=== PATIENT | female | born 1945 | race Caucasian/White ===

== ENCOUNTER → 2023-05-11 09:40 | Outpatient (REF) | payer MEDICARE, SELFPAY | LOC: RAD 09:40 | PROVIDERS: ATTENDING PHYSICIAN Family Medicine | DX: J18.9 Pneumonia, unspecified organism (principal) | CPT/HCPCS: 71046 ==

== ENCOUNTER → 2023-08-11 14:02 | Outpatient (REF) | payer MEDICARE, SELFPAY | LOC: WDC 14:02 | PROVIDERS: ATTENDING PHYSICIAN Family Medicine | DX: Z12.31 Encounter for screening mammogram for malignant neoplasm of breast (principal) | CPT/HCPCS: 77063; 77067 ==

== ENCOUNTER → 2023-09-04 10:52 | Outpatient (REF) | payer MEDICARE, SELFPAY | LOC: HWRAD 10:52 | PROVIDERS: ATTENDING PHYSICIAN Family Medicine | DX: Z86.79 Personal history of other diseases of the circulatory system (principal); I25.10 Atherosclerotic heart disease of native coronary artery without angina pectoris | CPT/HCPCS: 93880 ==

== ENCOUNTER → 2023-09-16 07:56 | Outpatient (REF) | payer MEDICARE, SELFPAY ==
[2023-09-16 09:58] LABS: Blood Urea Nitrogen 24 mg/dl (7-17); Calcium 9.5 mg/dl (8.4-10.2); Carbon Dioxide 25 mmol/L (22-30); Chloride 109 mmol/L (98-107); Glucose 92 mg/dl (70-99); Sodium 138 mmol/L (135-145); eGFR > 60.00
[2023-09-16 10:25] LABS: Potassium 4.5 mmol/L (3.5-5.1)
== END ==
LOC: REG 07:56
PROVIDERS: ATTENDING PHYSICIAN Family Medicine
DX: Z01.818 Encounter for other preprocedural examination (principal)
CPT/HCPCS: 36415; 80048

== ENCOUNTER → 2023-09-24 07:23 | Outpatient (REF) | payer MEDICARE, SELFPAY | LOC: RAD 07:23 | PROVIDERS: ATTENDING PHYSICIAN Family Medicine | DX: I65.21 Occlusion and stenosis of right carotid artery (principal) | CPT/HCPCS: 70496; 70498; Q9967 ==

== ENCOUNTER → 2023-11-27 09:00 | Outpatient (REF) | payer MEDICARE, SELFPAY | LOC: RAD 09:00 | PROVIDERS: ATTENDING PHYSICIAN Family Medicine | DX: M25.561 Pain in right knee (principal); Z91.81 History of falling | CPT/HCPCS: 73502; 73564 ==

== ENCOUNTER → 2023-12-19 07:40 | Outpatient (REF) | payer MEDICARE, SELFPAY ==
[2023-12-19 08:15] LABS: % Basophils 0.2 % (0-2); % Eosinophils 4.8 % (0-6); % Immature Granulocytes 0.2 % (0-0.5); % Lymphocytes 20.6 % (20.5-51.1); % Monocytes 7.2 % (1.7-9.3); Absolute Eosinophils 0.2 10^3/uL (0-0.7); Absolute Lymphocytes 0.9 10^3/uL (1.2-3.4); Absolute Monocytes 0.3 10^3/uL (0.1-0.6); Absolute Neutrophils 3.1 10^3/uL (1.4-6.5); Hematocrit 39.2 % (37.0-47.0); Hemoglobin 13.1 g/dL (12.0-16.0); Mean Corp Hgb Conc. 33.4 g/dL (33.0-37.0); Mean Corpuscular Hgb 30.8 pg (27.0-31.0); Mean Corpuscular Volume 92.2 fL (81.0-99.0); Nucleated Red Blood Cells % 0 %; Platelet Count 172 10^3/uL (130-400); Red Blood Cell Count 4.25 10^6/uL (4.20-5.40); Red Cell Dist. Width 12.9 % (11.5-14.5); White Blood Cell Count 4.6 10^3/uL (4.8-10.8)
[2023-12-19 08:37] LABS: Iron 100 ug/dl (37-170)
[2023-12-19 08:46] LABS: Percent Saturation 31 % (20-50); Total Iron Binding Capacity 319 ug/dl (265-497)
[2023-12-19 09:50] LABS: Folate 13.7 ng/ml (2.76-20); Vitamin B12 331 pg/ml (239-931)
== END ==
LOC: REG 07:40
PROVIDERS: ATTENDING PHYSICIAN Family Medicine
DX: I10 Essential (primary) hypertension (principal); E78.00 Pure hypercholesterolemia, unspecified; G70.00 Myasthenia gravis without (acute) exacerbation; E53.8 Deficiency of other specified B group vitamins; D64.9 Anemia, unspecified; D51.9 Vitamin B12 deficiency anemia, unspecified
CPT/HCPCS: 36415; 82607; 82728; 82746; 83540; 83550; 85025

== ENCOUNTER → 2024-01-20 06:23 | Day surgery (SDC) | payer MEDICARE, SELFPAY | LOC: GI 06:23 | PROVIDERS: ATTENDING PHYSICIAN Surgery; FAMILY PHYSICIAN Family Medicine | PROC: 0DJD8ZZ Inspection of Lower Intestinal Tract, Via Natural or Artificial Opening Endoscopic (ICD-10-PCS; 2024-01-20) | DX: Z12.11 Encounter for screening for malignant neoplasm of colon (principal); K57.30 Diverticulosis of large intestine without perforation or abscess without bleeding; K64.9 Unspecified hemorrhoids; Z86.0100 Personal history of colon polyps, unspecified | CPT/HCPCS: G0105 ==

== ENCOUNTER → 2024-03-14 06:51 | Outpatient (REF) | payer MEDICARE, SELFPAY ==
[2024-03-14 07:43] LABS: % Basophils 0.3 % (0-2); % Eosinophils 5.9 % (0-6); % Immature Granulocytes 0.3 % (0-0.5); % Lymphocytes 27.4 % (20.5-51.1); % Neutrophils 59.1 % (42.2-75.2); Absolute Eosinophils 0.2 10^3/uL (0-0.7); Absolute Monocytes 0.3 10^3/uL (0.1-0.6); Absolute Neutrophils 2.2 10^3/uL (1.4-6.5); Hemoglobin 12.5 g/dL (12.0-16.0); Mean Corp Hgb Conc. 32.1 g/dL (33.0-37.0); Mean Corpuscular Hgb 30.6 pg (27.0-31.0); Mean Corpuscular Volume 95.6 fL (81.0-99.0); Mean Platelet Volume 10.9 fL (7.4-10.4); Nucleated Red Blood Cells % 0 %; Platelet Count 164 10^3/uL (130-400); Red Blood Cell Count 4.08 10^6/uL (4.20-5.40); Red Cell Dist. Width 13.6 % (11.5-14.5); White Blood Cell Count 3.7 10^3/uL (4.8-10.8)
[2024-03-14 08:24] LABS: ALT (SGPT) 18 U/L (0-35); AST (SGOT) 22 U/L (14-36); Albumin 4.2 g/dl (3.5-5.0); Alkaline Phosphatase 72 U/L (38-126); Blood Urea Nitrogen 22 mg/dl (7-17); Calcium 9.2 mg/dl (8.4-10.2); Carbon Dioxide 24 mmol/L (22-30); Chloride 107 mmol/L (98-107); Glucose 92 mg/dl (70-99); HDL Cholesterol 74 mg/dl; LDL Cholesterol, Calculated 67 mg/dl; Potassium 4.6 mmol/L (3.5-5.1); Sodium 139 mmol/L (135-145); Total Bilirubin 0.4 mg/dl (0.2-1.3); Total Cholesterol 165 mg/dl (50-199); Total Protein 6.5 g/dl (6.3-8.2); Triglyceride 122 mg/dl (10-149); Very Low Density Lipoprotein 24 mg/dl (0-30); eGFR > 60.00
[2024-03-14 08:55] LABS: TSH Reflex To Free T4 4.59 uIU/ml (0.47-4.68)
[2024-03-14 09:14] LABS: Vitamin B12 372 pg/ml (239-931)
== END ==
LOC: REG 06:51
PROVIDERS: ATTENDING PHYSICIAN Family Medicine
DX: I10 Essential (primary) hypertension (principal); E78.00 Pure hypercholesterolemia, unspecified; G47.33 Obstructive sleep apnea (adult) (pediatric); G70.00 Myasthenia gravis without (acute) exacerbation; I65.21 Occlusion and stenosis of right carotid artery; R53.83 Other fatigue; E53.8 Deficiency of other specified B group vitamins
CPT/HCPCS: 36415; 80053; 80061; 82607; 84443; 85025

== ENCOUNTER → 2024-09-22 14:06 | Outpatient (REF) | payer MEDICARE, SELFPAY | LOC: RAD 14:06 | PROVIDERS: ATTENDING PHYSICIAN Family Medicine | DX: I65.21 Occlusion and stenosis of right carotid artery (principal) | CPT/HCPCS: 93880 ==

== ENCOUNTER 2025-03-03 16:33 | Observation (INO) | payer MEDICARE, SELFPAY ==
[2025-03-03] VITALS (11 sets, daily range): BP systolic 124–159; BP diastolic 55–79; BMI 37.5; BMI 36.6
--- NOTE | 2025-03-03 11:55 | ED.GENMED ---
History of Present Illness
<Belkys Riddle PA-C - Last Filed: 03/03/25 16:47>
General
Chief Complaint: Fainting Sensation
Source: patient and family
Exam Limitations: none
Time Seen by Provider: 03/03/25 11:26
History of Present Illness
History of Present Illness:
79yoF with a history of hypertension, hyperlipidemia, ocular myasthenia gravis, and prior TIA presenting via EMS for evaluation after near syncopal episode while in physical therapy. Patient had a URI around [facility] and has been feeling
rundown ever since. She has been experiencing intermittent chest pains with come and go randomly as well as exertional dyspnea. She was driving yesterday and suddenly did not remember where she was or how she got there. This lasted a few minutes
before resolving. She is currently in physical therapy for neck issues. She was participating in PT today when she suddenly became lightheaded and daughter states she appeared 'almost unresponsive.' There was no true loss of consciousness and EMS
was activated. Dizziness is currently improved but she is feeling very fatigued. No vomiting, diarrhea, fevers, urinary symptoms.
Past History
<Belkys Riddle PA-C - Last Filed: 03/03/25 16:47>
Past History
ED Past Medical History: HTN, Hypercholesterolemia, Other (Myasthenia gravis (MG)), Other (Glaucoma) and Other (Diverticulosis; TIA; R carotid stenosis w/ remediation)
ED Past Surgical History: Appendectomy, and Other (R CEA)
Social History
Tobacco: Non-smoker
Alcohol: None
Drug: None
Personal:
Living: with family
Employment: Employed
Family History
Family History: Hypertension
Phy Exam
<Belkys Riddle PA-C - Last Filed: 03/03/25 16:47>
General Physical Exam
General Presentation: well appearing and no apparent distress
General Skin: warm and dry
General Habitus: normal
General Mental: alert
ENT Exam
ENT Exam: normocephalic
Cardiovascular Exam
Cardiovascular Exam: regular rate/rhythm
Pulmonary Exam
Pulmonary Exam: lungs clear, no respiratory distress, no rales, chest non tender, no crackles, no rhonchi and no stridor
Neurological Exam
Neurological Exam: alert, no motor deficits and speech normal
[place] Coma Scale
Eye Opening: Spontaneous
Verbal Response: Oriented
Motor Response: Obeys Commands
GCS Total Score: 15
Skin Exam
Skin Exam: normal color and warm/dry
Psychiatric Exam
Psychiatric Exam: normal mood/affect
<Lico Espana MD - Last Filed: 03/03/25 15:47>
[place] Coma Scale
GCS Total Score: 15
Course
<Belkys Riddle PA-C - Last Filed: 03/03/25 16:47>
Orders/Labs/Results
Orders:
Orders
03/03/25 11:07
EKG [Electrocardiogram (*1)] Stat
Reason for Study: Syncope
03/03/25 11:08
EKG- Treatment ONCE
03/03/25 11:52
Orthostatic VS- Treatment ONCE
0.9% Sodium Chloride 500 ml [Nss] 500 ml IV BOLUS
03/03/25 11:53
Cardiac Monitoring- Treatment ONCE
03/03/25 11:54
CT Head W/o Iv Contrast Urgent
Comment:
Reason For Exam: dizziness
CR Chest - 2 Views Urgent
Comment:
Reason For Exam: CP
03/03/25 12:02
COVID-19 Antigen Urgent
Source: Nasal Swab
Influenza A+B Rapid Molecular Urgent
LEYDA Source: Nasal Swab
Specimen Description:
03/03/25 12:03
Basic Metabolic Panel Urgent
Complete Blood Count/With Diff Urgent
NT-proBNP Urgent
Comment: ADD ON
TSH Reflex To Free T4 Urgent
Troponin I Urgent
03/03/25 14:32
Electrocardiogram (*1) Urgent
Reason for Study: Chest Pain
EKG- Treatment ONCE
03/03/25 15:10
Add On- LAB Urgent
Tests Added?: pBNP
03/03/25 15:14
Orthostatic Vital Signs As Directed
Orthostatic VS Frequency: Now
03/03/25 15:28
Admit/Transfer Patient As Directed
Co-Sign Provider:
Level of Care: Observation services
Assign to:: Telemetry
Physician / Group: Rafa Lujan
Diagnosis: chest pain, near syncope
Reason for Telemetry: Chest Pain syndromes
Date to Stop Telemetry: 03/05/25
Time to Stop Telemetry: 11:00
PRN Pain Medication Management As Directed
May give lesser potent ordered pain med per pt: Yes
preference::
Protocol:: Medication orders for pain may be administered in a
manner that supports deferring to patient preference
when the pt is:
- Requesting an ordered lesser potent pain medication.
Least to most potent pain medications are defined
as: acetaminophen < NSAID < tramadol < opioids
(morphine, oxycodone, hydromorphone).
- Requesting a lesser dose of the same medication IF
ORDERED.
- Requesting a less intrusive route of administration
if both routes are prescribed by the provider (PO <
IV).
03/03/25 15:29
Code Status As Directed
Resuscitation Status: Full Code
03/03/25 16:32
CT Chest PE Study Urgent
Comment:
Reason For Exam: CP, near syncope
03/05/25 11:00
DC Protocol for Telemetry ONCE
Abnormal Lab Results
03/03/25
12:03
RBC 4.16 L 10^6/uL
(4.20-5.40)
MCH 31.5 H pg
(27.0-31.0)
MPV 10.8 H fL
(7.4-10.4)
Absolute Lymphs (auto) 1.1 L 10^3/uL
(1.2-3.4)
Lymphocytes % 20.2 L %
(20.5-51.1)
Eosinophils % 12.7 H %
(0-6)
Chloride 112 H mmol/L
(98-107)
BUN 23 H mg/dl
(7-17)
03/03/25 12:03
03/03/25 12:03
Vital Signs
Initial and Last Documented VS:
Initial Vital Signs
Temp Pulse Resp Pulse Ox
98.2 F 74 19 97
03/03/25 11:00 03/03/25 11:00 03/03/25 11:00 03/03/25 11:00
Last Documented Vital Signs
Temp Pulse Resp BP Pulse Ox
98.2 F 70 21 124/60 95
03/03/25 11:00 03/03/25 14:30 03/03/25 14:30 03/03/25 14:00 03/03/25 14:30
<Lico Espana MD - Last Filed: 03/03/25 15:47>
Orders/Labs/Results
Orders:
Orders
03/03/25 11:07
EKG [Electrocardiogram (*1)] Stat
Reason for Study: Syncope
03/03/25 11:08
EKG- Treatment ONCE
03/03/25 11:52
Orthostatic VS- Treatment ONCE
0.9% Sodium Chloride 500 ml [Nss] 500 ml IV BOLUS
03/03/25 11:53
Cardiac Monitoring- Treatment ONCE
03/03/25 11:54
CT Head W/o Iv Contrast Urgent
Comment:
Reason For Exam: dizziness
CR Chest - 2 Views Urgent
Comment:
Reason For Exam: CP
03/03/25 12:02
COVID-19 Antigen Urgent
Source: Nasal Swab
Influenza A+B Rapid Molecular Urgent
LEYDA Source: Nasal Swab
Specimen Description:
03/03/25 12:03
Basic Metabolic Panel Urgent
Complete Blood Count/With Diff Urgent
NT-proBNP Urgent
Comment: ADD ON
TSH Reflex To Free T4 Urgent
Troponin I Urgent
03/03/25 14:32
Electrocardiogram (*1) Urgent
Reason for Study: Chest Pain
EKG- Treatment ONCE
03/03/25 15:10
Add On- LAB Urgent
Tests Added?: pBNP
03/03/25 15:14
Orthostatic Vital Signs As Directed
Orthostatic VS Frequency: Now
03/03/25 15:28
Admit/Transfer Patient As Directed
Co-Sign Provider:
Level of Care: Observation services
Assign to:: Telemetry
Physician / Group: Rafa Lujan
Diagnosis: chest pain, near syncope
Reason for Telemetry: Chest Pain syndromes
Date to Stop Telemetry: 03/05/25
Time to Stop Telemetry: 11:00
PRN Pain Medication Management As Directed
May give lesser potent ordered pain med per pt: Yes
preference::
Protocol:: Medication orders for pain may be administered in a
manner that supports deferring to patient preference
when the pt is:
- Requesting an ordered lesser potent pain medication.
Least to most potent pain medications are defined
as: acetaminophen < NSAID < tramadol < opioids
(morphine, oxycodone, hydromorphone).
- Requesting a lesser dose of the same medication IF
ORDERED.
- Requesting a less intrusive route of administration
if both routes are prescribed by the provider (PO <
IV).
03/03/25 15:29
Code Status As Directed
Resuscitation Status: Full Code
03/03/25 16:32
CT Chest PE Study Urgent
Comment:
Reason For Exam: CP, near syncope
03/05/25 11:00
DC Protocol for Telemetry ONCE
Abnormal Lab Results
03/03/25
12:03
RBC 4.16 L 10^6/uL
(4.20-5.40)
MCH 31.5 H pg
(27.0-31.0)
MPV 10.8 H fL
(7.4-10.4)
Absolute Lymphs (auto) 1.1 L 10^3/uL
(1.2-3.4)
Lymphocytes % 20.2 L %
(20.5-51.1)
Eosinophils % 12.7 H %
(0-6)
Chloride 112 H mmol/L
(98-107)
BUN 23 H mg/dl
(7-17)
03/03/25 12:03
03/03/25 12:03
Vital Signs
Initial and Last Documented VS:
Initial Vital Signs
Temp Pulse Resp Pulse Ox
98.2 F 74 19 97
03/03/25 11:00 03/03/25 11:00 03/03/25 11:00 03/03/25 11:00
Last Documented Vital Signs
Temp Pulse Resp BP Pulse Ox
98.2 F 70 21 124/60 95
03/03/25 11:00 03/03/25 14:30 03/03/25 14:30 03/03/25 14:00 03/03/25 14:30
<Belkys Riddle PA-C - Last Filed: 03/03/25 16:47>
MDM/Problems Addressed
Differential Diagnosis Includes:
79yoF here after a near syncopal episode at PT today. Also c/o intermittent chest pains and exertional dyspnea x several weeks. VSS. Patient non-toxic appearing. Differential diagnosis includes: symptomatic anemia, orthostatic hypotension,
dehydration, ACS
Initial ED plan: Check cardiac labs, TSH, EKG, CXR, CT head and orthostatic vital signs. IV fluid bolus.
<Belkys Riddle PA-C - Last Filed: 03/03/25 16:47>
*Pulse Oximetry
SaO2: 97
Oxygen Mode of Delivery: Room air
Patient hypoxic: no
*EKG
Interpreted by ED Provider?: Yes
EKG Intrepretation Date: 03/03/25
Heart Rate: 72
Rate: normal
Rhythm: sinus
[place]: right axis deviation
Interval: normal interval
QRS Pattern: low voltage
Ischemia: no ischemia
*Critical Care Note
Total Time (30-74mins, 75-104mins- exclusive of procedures): Not Applicable
<Belkys Riddle PA-C - Last Filed: 03/03/25 16:47>
Update Note
Update Note:
Labs and imaging overall unremarkable. Patient complaining of worsening chest pain while in ED. Repeat troponin obtained which again shows NSR without ischemic changes. Given persistent symptoms, will admit for further evaluation. Hospitalist
requesting PE study prior to admission which was ordered.
ED Attending Note
<Belkys Riddle PA-C - Last Filed: 03/03/25 16:47>
-
Portions of this chart may have been created with voice recognition software.� Occasional wrong word or��sound alike� substitutions may have occurred due to the inherent limitations of voice recognition software.
<Lico Espana MD - Last Filed: 03/03/25 15:47>
ED Attending Note
Patient seen and examined by attending physician: Yes
I performed the substantive portion of visit, reviewed & personally made and approve the management plan that is documented in note by myself or BRAXTON.: Yes
ED Attending Note:
I have seen and evaluated the patient with a hdyi-cy-syav encounter. I have spoken to the [BRAXTON] and involved in the medical history, the physical exam, medical decision making.
Evaluation and management service: agree unless noted differently below.
Results interpretation: agree unless noted differently below.
79-year-old woman presenting to the emergency department with multiple complaints. She states that she has been having ongoing chest pain. Has been having it intermittently but that she has been to the emergency department has been persistent.
She has been having exertional dyspnea. She does see Dr. Cadena from cardiology but has not seen him for quite some time. She is unsure when her last stress test was. She has also been having episodes of confusion intermittently. She also notes
that today she was at physical therapy when she became extremely lightheaded dizzy and almost passed out. No loss of consciousness. No head strike. At this time patient's only complaint is chest pressure. My evaluation patient is resting
comfortably. Her heart is regular rate and rhythm. Her lungs are clear to auscultation bilaterally. Will check blood work EKG. Will obtain CT PE protocol. Patient will need admission for further evaluation especially serial troponins given
ongoing chest pain.
Patient is
Discharge Plan
Departure
Patient Disposition: Admit
Date of Disposition: 03/03/25
Time of Disposition: 14:43
Presentation/result/management discussed w/ accepting MD/DO: Hospitalist
Discharge Problem:
Chest pain, Near syncope
Interventions
Interventions:
*General Assessment Last Done: 03/03/25 11:23
*Neglect/Abuse Screening Last Done: 03/03/25 11:23
*ED COVID-19 Vaccine History Last Done: 03/03/25 11:23
*ED Influenza Vaccine History Last Done: 03/03/25 11:23
[facility] Fall Risk Assessment Tool Last Done: 03/03/25 11:00
ED- Cardiac Assessment Last Done: 03/03/25 11:00
ED- Neurological Assessment Last Done: 03/03/25 11:00
[2025-03-03] MEDS: NSS 500 IV (12:16)
[2025-03-03 13:01] LABS: COVID-19 Antigen Negative (Negative)
[2025-03-03 13:34] LABS: Hematocrit 39.1 % (37.0-47.0); Hemoglobin 13.1 g/dL (12.0-16.0); Mean Corp Hgb Conc. 33.5 g/dL (33.0-37.0); Mean Corpuscular Volume 94.0 fL (81.0-99.0); Nucleated Red Blood Cells % 0 %; Platelet Count 150 10^3/uL (130-400); Red Cell Dist. Width 13.6 % (11.5-14.5)
[2025-03-03 14:10] LABS: Troponin I 0.017 ng/ml
[2025-03-03 14:36] LABS: Blood Urea Nitrogen 23 mg/dl (7-17); Calcium 8.8 mg/dl (8.4-10.2); Carbon Dioxide 24 mmol/L (22-30); Chloride 112 mmol/L (98-107); Estimated Creatinine Clearance 79 ml/min; Glucose 91 mg/dl (70-99); Sodium 137 mmol/L (135-145); eGFR > 60.00
--- NOTE | 2025-03-03 14:48 | HPS.HSE ---
Family Physician
-
Family Physician: Giovanny Jurado
Chief Complaint
-
near syncope
History of Present Illness
Patient is a 79-year-old female with past medical history significant for hypertension, hypercholesterolemia and Myasthenia Gravis who presented to [facility] ED for evaluation of near syncopal episode at physical therapy. Patient reports that she has
been experiencing exertional dyspnea and lightheadedness intermittently. Today while at physical therapy she had an episode of lightheadedness where she felt she was going to faint, she denies any loss of consciousness or fall. She notes that she
felt extremely lethargic, had acute onset of headache, nausea and chest pain that radiated to bilateral arms. She describes chest pain as 'someone pressing hard in the center of her chest.' Denies fever, chills, cough, vomiting, constipation,
diarrhea or urinary symptoms.
Medical History
Past Medical History
Past Medical History: Reports Other
Additional Past Medical History:
hypertension
hypercholesterolemia
Myasthenia Gravis
Glaucoma
Diverticulosis
TIA
R carotid stenosis w/ remediation
obstructive sleep apnea
Past Surgical History: Reports Other
Additional Past Surgical History:
Appendectomy
R carotid endarterectomy
hysterectomy 2009
Complex right ovarian cyst-RADHA, right salpingo-oophorectomy, lysis of adhesions
Social History
Tobacco: Non-smoker
Alcohol: None
Drug: None
Living: With Family
Employment: Retired
Family History
Family History: Not pertinent
Allergies / Home Medications
Allergies reflects when Allergies were last updated in [employer].
Home Medications with original date entered in [employer]
Allergy/Medication List:
Allergies
Allergy/AdvReac Type Severity Reaction Status Date / Time
amoxicillin Allergy itchy rash Verified 03/09/23 01:03
aspirin (From Aggrenox) Allergy takes low Verified 03/09/23 01:03
dose
aspirin
with no
problem
ciprofloxacin (From Cipro) Allergy contraindicated Verified 03/09/23 01:03
with
Myasthenia
Gravis
ciprofloxacin HCl (From Allergy contraindicated Verified 03/09/23 01:03
Cipro) with
Myasthenia
Gravis
dexlansoprazole (From Allergy Nausea Verified 03/09/23 01:03
Dexilant)
dipyridamole Allergy AGGRENOX=HE Verified 03/09/23 01:03
ADACHE
omeprazole Allergy joint/muscle Verified 03/09/23 01:03
pain
Penicillins Allergy Itching-GASTON Verified 03/09/23 01:03
XICILLIN
Sulfa (Sulfonamide Allergy Unknown Verified 03/09/23 01:03
Antibiotics)
tetracycline Allergy muscle Verified 03/09/23 01:03
pain
(joints
too)
Home Medications
latanoprost 0.005 % eye drops 1 drp RIGHT EYE HS Eye Condition 12/28/09
ascorbic acid (vitamin C) 500 mg tablet (Vitamin C) 1,000 mg PO DAILY Supplement 07/14/10
pyridostigmine bromide 60 mg tablet 60 mg PO QID Neurological Condition 07/14/10
aspirin 81 mg tablet,delayed release 81 mg PO DAILY ##0 11/07/14
atorvastatin 10 mg tablet 10 mg PO QPM ##60 11/07/14
acetaminophen 500 mg tablet (Tylenol Extra Strength) 500 mg PO PRN PRN pain 11/27/14
cholecalciferol (vitamin D3) 10 mcg (400 unit) tablet (Vitamin D3) 800 units PO Q OTHER DAY Supplement 11/27/14
clobetasol 0.05 % topical cream 1 applic topical BID rectal 03/03/25
cyanocobalamin (vitamin B-12) 1,000 mcg tablet 1,000 mcg PO DAILY 03/03/25
hydrocortisone 2.5 % topical cream with perineal applicator (Procto-Med HC) 1 applic GA DAILY PRN rectal 03/03/25
magnesium oxide 400 mg PO DAILY 03/03/25
olmesartan 5 mg tablet 5 mg PO DAILY 03/03/25
Review of Systems
-
History Source: Patient
Constitutional: Reports Fatigue; Denies Fever or Chills
EENT: Denies Sore Throat
Respiratory: Reports Trouble Breathing (exertional dyspnea); Denies Cough or Hemoptysis
Cardiac: Reports Chest Pain (radiating to bilateral arms); Denies Diaphoresis, Palpitations or Syncope
Abdomen/GI: Reports Nausea; Denies Abdominal Pain, Vomiting or Diarrhea
: Denies Dysuria, Frequency or Urgency
Musculoskeletal: Denies Joint Pain
Skin: Denies Rash
Neurological: Reports Dizzy and Headache; Denies Weakness or Numbness
Endocrine: Denies Polyuria
Physical Exam
Vital Signs
Vital Signs
Temp Pulse Resp BP Pulse Ox
98.2 F 70 21 124/60 95
03/03/25 11:00 03/03/25 14:30 03/03/25 14:30 03/03/25 14:00 03/03/25 14:30
Physical Exam
General: Well Developed, Well Nourished, No Apparent Distress, Comfortable, Conversant and Morbidly Obese
HEENT: NormoCephalic, Moist mucous membranes, PERRLA, Nose Appears Normal and Ears Appear Normal
Respiratory: Clear and Non Labored Respirations; No Wheezes, Rales or Rhonchi
Cardiac: S1/S2, Regular Rhythm and Peripheral Edema (trace BLLE); No Murmur, Rub or Gallop
GI: Soft, Non Tender, Non Distended and Normal Bowel Sounds
Musculoskeletal: No Clubbing, No Cyanosis and No Edema
Skin: Warm and IV/Catheter Site
Neuro: Awake and AO x 3
Psych: Calm and Intact Judgment/Insight
Laboratory Results
-
03/03/25 12:03
03/03/25 12:03
Laboratory Results
Total Bilirubin Cancelled 03/03/25 12:03
AST Cancelled 03/03/25 12:03
ALT Cancelled 03/03/25 12:03
Alkaline Phosphatase Cancelled 03/03/25 12:03
Troponin I 0.017 ng/ml 03/03/25 12:03
Data Reviewed
-
Diagnostic Radiology: Report Reviewed by me (CXR; No acute cardiopulmonary process.)
CT Scan: Report Reviewed by me (Head: No acute intracranial abnormality noted. No acute intracranial hemorrhage. No extra-axial collection. No mass effect. Slightly progressed minor chronic microvascular white matter ischemic disease.)
Medical Tests (Nuc Med, Echo, EKG etc): Report Reviewed by me (EKG: NORMAL SINUS RHYTHM)
Lab Data: Labs Reviewed by me (trop 0.017)
Impression/Plan
-
IMPRESSION/PLAN:
#syncopal sensations, radiating chest pain 2/2 ACS vs. infectious process vs. orthostatic hypotension vs. PE
syncopal sensation, extremely lethargy, acute onset of headache, nausea and chest pain that radiated to bilateral arms
Labs unremarkable, trop 0.017, pBNP
Covid: negative
Influenza: negative
EKG: NORMAL SINUS RHYTHM
CXR: No acute cardiopulmonary process.
Chest CT: pending
Head Ct: No acute intracranial abnormality noted. No acute intracranial hemorrhage. No extra-axial collection. No mass effect. Slightly progressed minor chronic microvascular white matter ischemic disease.
- Admit to telemetry
- check orthostatic VS
- trend troponin
- check ECHO
#hypertension
- continue olmesartan
#hypercholesterolemia
- continue atorvastatin
#Myasthenia Gravis
- continue pyridostigmine
#obstructive sleep apnea
- CPAP HS
Code status: full code
DVT prophylaxis: Lovenox sq
--- NOTE | 2025-03-03 15:00 | W.PN.UPDATE ---
Addendum entered and electronically signed by Rafa Lujan MD 03/04/25 07:51:
CTC PE protocol
No CTA evidence for an acute pulmonary thromboembolism.
Original Note:
Update Note
Progress Note Update
This note serves as an addendum to the H&P by apple picking supervisor Sara Barnes
HPI
79F
PMHX as below
Seen at ER: Eval for near syncope episode while at PT
Associated episode of confusion yesterday: NEG HCT
Active chest pain but no ischemic changes on EKG and NEG TPNI
experiencing intermittent chest pains with come and go randomly as well as exertional dyspnea.
- had a URI around and has been feeling rundown ever since
- report transient AMS yesterday and where she was or how she got there lasted a few minutes before resolving. S
- She was standing up and down when she suddenly became lightheaded and daughter states she appeared 'almost unresponsive.'
- There was no true loss of consciousness and EMS was activated.
- Dizziness is currently improved but she is feeling very fatigued.
- No vomiting, diarrhea, fevers, urinary symptoms.
Reports R Leg intermittently swollen more than Lt
PHX
HX TIA
Chronic Diagnoses:
History of myasthenia gravis on Pyridostigmine
Hypercholesterolemia
Hypertension
MAYDA on CPA HS
Vitamin B12 Deficiency
TIA
HX Transient global amnesia
HX Right carotid endarterectomy 12/01/2014 for Right carotid artery stenosis
HX small patent foramen ovale
Relevant VS
Temp Pulse Resp BP Pulse Ox
98.2 F 70 21 124/60 95
03/03/25 11:00 03/03/25 14:30 03/03/25 14:30 03/03/25 14:00 03/03/25 14:30
PE
Gen: Class II obesity , Intense , NAD
HEENT: symmetric face and expression, fluent speech
Neck: supple
Lungs: non labored breathing , marginal POx mif 90s to low 90s , Not tachynic
Cor: RRR S1 S2
Abdomen:�soft and obese
[employer]PER[employer]: AAO3,, Grossly NFND
MS: No edema , R Leg intermittently swollen nore than Lt
Psych:
Relevant data�
03/03/25
12:03
Sodium 137
Chloride 112 H
BUN 23 H
Creatinine 0.8
eGFR > 60.00
03/03/25
12:03
WBC 5.5
Hgb 13.1
Plt Count 150
HCT
No acute intracranial abnormality noted.
No acute intracranial hemorrhage.
No extra-axial collection.
No mass effect.
Slightly progressed minor chronic microvascular white matter ischemic disease.
CXR
No acute cardiopulmonary process.
EKG
NORMAL SINUS RHYTHM
NORMAL ECG
WHEN COMPARED WITH ECG OF 09-Mar-2023 01:04,
PREMATURE VENTRICULAR COMPLEXES ARE NO LONGER PRESENT
CRITERIA FOR SEPTAL INFARCT ARE NO LONGER PRESENT
T WAVE INVERSION NO LONGER EVIDENT IN ANTERIOR LEADS
09/20/22 TTE
- Normal left ventricular size, wall thickness and systolic function.
- No regional WMAL are seen.
- Estimated LVEF 55- 60%.
- Normal diastolic function.
- Since echocardiogram July 2017, there is no significant change.
Last hospitalist admission: 03/09/23 -03/12/23
Principal Diagnosis:
Acute COVID infection, positive 03/02/23
Left Lower Lobe Community-Acquired Pneumonia
Acute Hypoxic Respiratory Insufficiency, resolved
ASSESSMENT & PLAN
Witnessed Near syncope during PT
- denied Fall and LoC
- Unnameable VSS
- unremarkable EKG
- NEG TPNI
- Unremarkable Labs
- marginal POx mid90s to low 90s , Not tachypneic
- fall precaution
- Ortho VSS
- CTC PE to complete w/u
- ECHO to eval valvular pathology
- TLM Monitor
Hx myasthenia gravis ( Ocular ) ; On Pyridostigmine
Hypercholesterolemia: on Statin
HTN; on HCTZ
Known HX
Hx TIA
Hx Transient global amnesia
s/p Right CEA 12/01/2014 for Rt CLOVIS
Hx small PFO
Chronic Diagnoses:
History of myasthenia gravis ( ocular ) on Pyridostigmine
Hypercholesterolemia; on [employer]CHIT[employer] Atorvastatin
Hypertension; on ETHER[employer] ARCHITECT Olmesartan ( HX foramen Ovale)
Obstructive Sleep Apnea: compliance with CPAP HS
History of Vitamin B12 Deficiency
HX TIA: c/w ETHERNET NETWORK ARCHITECT ASA and Stain
HX transient global amnesia
HX R carotid endarterectomy 12/01/2014 for Right carotid artery stenosis
DVT Px: LMWH
Full code
OBS LM
[2025-03-03 18:28] LABS: Troponin I < 0.012 ng/ml
[2025-03-03] MEDS: LIPITOR 10 MG PO (20:34)
[2025-03-03] MEDS: LOVENOX 40 MG SC (20:34)
[2025-03-03] MEDS: MESTINON 60 MG PO (20:36)
[2025-03-03 21:14] LABS: Troponin I < 0.012 ng/ml
[2025-03-04] MEDS: TYLENOL 650 MG PO (00:58)
[2025-03-04 02:41] LABS: Troponin I 0.015 ng/ml
[2025-03-04 03:30] VITALS: BP 126/55
[2025-03-04 07:00] VITALS: BP 150/71
[2025-03-04 07:38] LABS: Hematocrit 32.5 % (37.0-47.0); Hemoglobin 11.4 g/dL (12.0-16.0); Mean Corp Hgb Conc. 35.1 g/dL (33.0-37.0); Mean Corpuscular Volume 92.1 fL (81.0-99.0); Platelet Count 152 10^3/uL (130-400); Red Cell Dist. Width 13.8 % (11.5-14.5)
[2025-03-04 08:03] LABS: Troponin I 0.012 ng/ml
[2025-03-04] MEDS: ASPIR LOW (ENTERIC COATED) 81 MG PO (09:07)
[2025-03-04] MEDS: MESTINON 60 MG PO ×2 (09:07→12:04)
[2025-03-04] MEDS: COZAAR 12.5 MG PO (09:07)
[2025-03-04 09:16] VITALS: BP 139/63; BP 141/69; BP 144/80; PULSE 72; PULSE 73; PULSE 82
[2025-03-04 11:00] VITALS: BP 138/64
[2025-03-04 11:47] LABS: Blood Urea Nitrogen 17 mg/dl (7-17); Calcium 9.0 mg/dl (8.4-10.2); Carbon Dioxide 23 mmol/L (22-30); Chloride 110 mmol/L (98-107); Estimated Creatinine Clearance 69 ml/min; Glucose 133 mg/dl (70-99); HDL Cholesterol 62 mg/dl; LDL Cholesterol, Calculated 57 mg/dl; Potassium 3.9 mmol/L (3.5-5.1); Sodium 137 mmol/L (135-145); Very Low Density Lipoprotein 25 mg/dl (0-30); eGFR > 60.00
--- NOTE | 2025-03-04 12:51 | W.PN.HOSP.TC ---
Addendum entered and electronically signed by Torsten Verduzco MD 03/04/25 16:00:
[id number]
Addendum entered and electronically signed by Torsten Verduzco MD 03/04/25 13:01:
Anemia
-most likely spurious; no evidence of bleeding; no black or bloody stools;
-f/u cbc outpt
Original Note:
Today's Communication/Plan
-
Chest pain is reproducible on palpation of xiphoid/subxiphoid process; troponins negative; orthostatic negative
Follow-up echo outpatient
Follow-up PCP within 1 week
Can follow-up with cardiology depending on PCP
Assessment / Plan
Assessment / Plan
Physical Exam
General: Well Developed, Well Nourished, No Apparent Distress, Comfortable, Conversant and Morbidly Obese
HEENT: NormoCephalic, Moist mucous membranes, PERRLA, Nose Appears Normal and Ears Appear Normal
Respiratory: Clear and Non Labored Respirations; No Wheezes, Rales or Rhonchi
Cardiac: S1/S2, Regular Rhythm; No Murmur, Rub or Gallop
GI: Soft, Non Tender, Non Distended and Normal Bowel Sounds
Musculoskeletal: No Clubbing, No Cyanosis and No Edema
Skin: Warm and IV/Catheter Site
Neuro: Awake and AO x 3
Psych: Calm and Intact Judgment/Insight
#syncopal sensations, radiating chest pain
#Musculoskeletal chest pain
� Pain reproducible at xiphoid/subxiphoid process
� Pain controlled
� Troponins negative
�CT chest unremarkable
�Head Ct: No acute intracranial abnormality noted. No acute intracranial hemorrhage. No extra-axial collection. No mass effect. Slightly progressed minor chronic microvascular white matter ischemic disease.
�Orthostatic negative
� Can follow-up with echo outpatient
#hypertension
- continue olmesartan
#hypercholesterolemia
- continue atorvastatin
#Myasthenia Gravis
- continue pyridostigmine
#obstructive sleep apnea
- CPAP HS
Code status: full code
DVT prophylaxis: Lovenox sq
More than 30 minutes spent in discharge including
Final examination of the patient
Summarizing hospital stay
Instructions for continuing care to all relevant caregivers
Preparation of discharge records, prescriptions, and referral forms
Total time spent (in minutes): 36
Anticipated Discharge: Today
Subjective/Interval History
-
Date of Service: March 04, 2025
Pain is reproducible upon palpitation of xiphoid/subxiphoid process
Objective Data
-
Labs:
Laboratory Results
03/04/25 03/04/25
07:21 09:35
WBC 3.8 L
Hgb 11.4 L
Hct 32.5 L
Plt Count 152
Sodium Cancelled 137
Potassium Cancelled 3.9
Chloride Cancelled 110 H
Carbon Dioxide Cancelled 23
BUN Cancelled 17
Creatinine Cancelled 0.9
Glucose Cancelled 133 H
Calcium Cancelled 9.0
Vital Signs:
Vital Signs
Temp Pulse Resp BP Pulse Ox
98.0 F 63 16 138/64 96
03/04/25 11:00 03/04/25 11:00 03/04/25 11:00 03/04/25 11:00 03/04/25 11:00
I&O
03/03/25 03/04/25 03/05/25
06:59 06:59 06:59
Intake Total 480 / 480
Balance 480 / 480
Review of Systems
-
History Source: Patient
All other systems: Not reviewed unless documented
Physical Exam
-
General: Well Developed, Well Nourished, Comfortable, Respiratory Distress and Conversant (speak in full sentences)
HEENT: Normocephalic, Atraumatic, Nose Appears Normal and Ears Appear Normal
Respiratory: Clear to Auscultation and Non Labored Respirations; Negative Accessory Resp Muscle Use
Cardiac: Regular Rhythm and S1/S2
GI: Soft, Nontender, Nondistended and Normal Bowel Sounds
Musculoskeletal: Other (Tenderness, moderate at xiphoid/subxiphoid process)
Skin: Warm and Dry
Neuro: Awake, Alert, Oriented and AO x 3
Psych: Calm and Intact Judgement/Insight
Data Reviewed
-
CT Scan: Report Reviewed by me
Labs: Labs Reviewed by me
--- NOTE | 2025-03-04 12:57 | W.DS.TRANS ---
DC Summary - [employer]
-
Discharge Instructions:
Discharge Diagnosis/Procedures Musculoskeletal chest pain
Diet Low Fat,Low Cholesterol
Activity As tolerated
Blood Work CBC and BMP within 3-4 days
Others Tests Cardiac testing, possibly echo as per outpatient
PCP
Instructions:
Stand-Alone Forms:
Changes to Home Medications: No
Discharge Medications:
DC Medications w/original date entered in [employer]
latanoprost 0.005 % eye drops 1 drp RIGHT EYE HS Eye Condition 12/28/09
ascorbic acid (vitamin C) 500 mg tablet (Vitamin C) 1,000 mg PO DAILY Supplement 07/14/10
pyridostigmine bromide 60 mg tablet 60 mg PO QID Neurological Condition 07/14/10
aspirin 81 mg tablet,delayed release 81 mg PO DAILY ##0 11/07/14
atorvastatin 10 mg tablet 10 mg PO QPM ##60 11/07/14
acetaminophen 500 mg tablet (Tylenol Extra Strength) 500 mg PO PRN PRN pain 11/27/14
cholecalciferol (vitamin D3) 10 mcg (400 unit) tablet (Vitamin D3) 800 units PO Q OTHER DAY Supplement 11/27/14
clobetasol 0.05 % topical cream 1 applic topical BID rectal 03/03/25
cyanocobalamin (vitamin B-12) 1,000 mcg tablet 1,000 mcg PO DAILY 03/03/25
hydrocortisone 2.5 % topical cream with perineal applicator (Procto-Med HC) 1 applic TN DAILY PRN rectal 03/03/25
magnesium oxide 100 mg PO DAILY 03/03/25
olmesartan 5 mg tablet 10 mg PO DAILY 03/03/25
Home Medication Changes
na
Pending Results: No
--- NOTE | 2025-03-04 12:58 | CM ---
Patient was admitted under OBS, BRAMBILA letter given patient did not want to sign, patient lives with daughter, in a 2 story home with 3 steps to enter, patient lives on 1st floor, patient is independent with adl's and ambulation, uses a cane
occasionally patient drives.
PCP: Dr Giovanny Jurado
Pharmacy: [facility] in [place]
[2025-03-04 14:32] VITALS: BP 107/82
== END 2025-03-04 14:55 | disposition home or self-care (01) ==
LOC: 4 WEST ACU 16:33
PROVIDERS: Nurse Practitioner Family; Physician Assistant; ADMITTING PHYSICIAN Internal Medicine; ATTENDING PHYSICIAN Internal Medicine; EMERGENCY PHYSICIAN Student in an Organized Health Care Education/Training Program; FAMILY PHYSICIAN Family Medicine
DX: R55 Syncope and collapse (principal); I10 Essential (primary) hypertension; G70.00 Myasthenia gravis without (acute) exacerbation; E78.5 Hyperlipidemia, unspecified; R07.89 Other chest pain; R42 Dizziness and giddiness; E78.00 Pure hypercholesterolemia, unspecified; H40.9 Unspecified glaucoma; M79.89 Other specified soft tissue disorders; R06.09 Other forms of dyspnea; G47.33 Obstructive sleep apnea (adult) (pediatric); E53.8 Deficiency of other specified B group vitamins; E66.812 Obesity, class 2; D64.9 Anemia, unspecified; I67.82 Cerebral ischemia; Z68.36 Body mass index [BMI] 36.0-36.9, adult; Z11.52 Encounter for screening for COVID-19; Z90.49 Acquired absence of other specified parts of digestive tract; Z82.49 Family history of ischemic heart disease and other diseases of the circulatory system; Z86.73 Personal history of transient ischemic attack (TIA), and cerebral infarction without residual deficits; Z86.16 Personal history of COVID-19; R06.89 Other abnormalities of breathing; Z90.710 Acquired absence of both cervix and uterus; Z90.721 Acquired absence of ovaries, unilateral; Z88.0 Allergy status to penicillin; Z88.6 Allergy status to analgesic agent; Z88.1 Allergy status to other antibiotic agents; Z88.2 Allergy status to sulfonamides; Z88.8 Allergy status to other drugs, medicaments and biological substances; Z79.899 Other long term (current) drug therapy
CPT/HCPCS: 70450; 71046; 71275; 80048; 80061; 83880; 84443; 84484; 85025; 85027; 87502; 87811; 93005; 96360; 99285; G0378; Q9967

== ENCOUNTER → 2025-03-08 08:07 | Outpatient (REF) | payer MEDICARE, SELFPAY ==
[2025-03-08 08:52] LABS: Hematocrit 39.2 % (37.0-47.0); Hemoglobin 12.9 g/dL (12.0-16.0); Mean Corp Hgb Conc. 32.9 g/dL (33.0-37.0); Mean Corpuscular Volume 95.4 fL (81.0-99.0); Nucleated Red Blood Cells % 0 %; Platelet Count 155 10^3/uL (130-400); Red Cell Dist. Width 13.5 % (11.5-14.5)
[2025-03-08 10:36] LABS: ALT (SGPT) 22 U/L (0-35); AST (SGOT) 27 U/L (14-36); Albumin 4.3 g/dl (3.5-5.0); Alkaline Phosphatase 72 U/L (38-126); Blood Urea Nitrogen 17 mg/dl (7-17); Calcium 9.2 mg/dl (8.4-10.2); Carbon Dioxide 24 mmol/L (22-30); Chloride 110 mmol/L (98-107); Glucose 82 mg/dl (70-99); HDL Cholesterol 62 mg/dl; LDL Cholesterol, Calculated 58 mg/dl; Potassium 4.4 mmol/L (3.5-5.1); Sodium 138 mmol/L (135-145); Total Protein 6.7 g/dl (6.3-8.2); Very Low Density Lipoprotein 28 mg/dl (0-30); eGFR 57.66
== END ==
LOC: REG 08:07
PROVIDERS: ATTENDING PHYSICIAN Family Medicine
DX: R26.89 Other abnormalities of gait and mobility (principal); I65.21 Occlusion and stenosis of right carotid artery; K64.1 Second degree hemorrhoids; E66.812 Obesity, class 2; Z68.37 Body mass index [BMI] 37.0-37.9, adult; E66.01 Morbid (severe) obesity due to excess calories; E78.00 Pure hypercholesterolemia, unspecified
CPT/HCPCS: 36415; 80053; 80061; 84439; 84443; 85025